=== PATIENT | female | born 1995 | race Caucasian/White ===

== ENCOUNTER 2016-12-08 02:16 | Emergency (ER) | payer MEDICAID ==
[~2016-12-08] VITALS: Ht 180.3 cm; Wt 90.9 kg
[2016-12-08 02:24] VITALS: BP 133/62; PULSE 85; TEMP 97.7
== END 2016-12-08 04:50 | disposition home or self-care (01) ==
LOC: COL.ER 02:16
DX: O9A.212 Injury, poisoning and certain other consequences of external causes complicating pregnancy, second trimester (principal); S93.402A Sprain of unspecified ligament of left ankle, initial encounter; Z3A.24 24 weeks gestation of pregnancy; X50.0XXA Overexertion from strenuous movement or load, initial encounter

== ENCOUNTER 2017-02-23 08:40 | Emergency (ER) | payer MEDICAID ==
[~2017-02-23] VITALS: Ht 180.3 cm; Wt 97.1 kg
[2017-02-23 08:49] VITALS: BP 129/77; PULSE 96; TEMP 98.5
[2017-02-23] MEDS ORDERED: PRENATAL PLUS (08:52)
[2017-02-23 09:30] LABS: STREP SCREEN NEGATIVE
[2017-02-23 09:31] LABS: INFLUENZA A NEGATIVE; INFLUENZA B NEGATIVE
== END 2017-02-23 10:25 | disposition home or self-care (01) ==
LOC: COL.ER 08:40
PROVIDERS: Emergency Medicine
DX: O99.513 Diseases of the respiratory system complicating pregnancy, third trimester (principal); J06.9 Acute upper respiratory infection, unspecified; Z3A.33 33 weeks gestation of pregnancy

== ENCOUNTER 2017-04-11 06:48 | Inpatient (IN) | payer MEDICAID ==
[~2017-04-11] VITALS: Ht 180.3 cm; Wt 100.0 kg
[2017-04-11] VITALS (66 sets, daily range): BP systolic 103–178; BP diastolic 55–97; PULSE 62–113; TEMP 97.3–98.5
[~2017-04-11 06:48] MED LIST: PRENATAL PLUS
[2017-04-11 07:44] LABS: BASO # 0.1 (0.0-0.2); BASO % 0.4 % (0.0-2.0); EOS # 0.2 (0.0-0.7); EOS % 1.1 % (0-4.0); GRAN # 10.1 (1.4-6.5); GRAN % 72.6 % (42.2-75.2); HEMOGLOBIN 12.4 g/dl (12.0-15.0); LYMPH # 2.5 (1.2-3.4); LYMPH % 17.6 % (20.0-51.0); MEAN CELL VOLUME 88 fl (80.0-95.0); MEAN CORPUSCULAR HEMOGLOBIN 30 pg (26.0-32.0); MEAN CORPUSCULAR HGB CONC 34 g/dl (33.0-37.0); MONO % 6.9 % (1.7-9.3); PLATELET COUNT 281 K/mm3 (130-400); REDCELL DISTRIBUTION WIDTH-CV 13.2 % (11.5-14.5)
[2017-04-11 07:58] LABS: TRICYCLIC ANTIDEPRESS URINE NEGATIVE
[2017-04-12] VITALS: BP 132/63; PULSE 96; TEMP 98.3
[2017-04-12 01:00] VITALS: BP 129/65; PULSE 98
[2017-04-12 05:11] VITALS: BP 120/72; PULSE 95; TEMP 98.3
[2017-04-12 07:00] VITALS: BP 122/56; PULSE 97; TEMP 98.1
[2017-04-12] MEDS ORDERED: IBU800 M1 PO (08:55)
[2017-04-12 15:00] VITALS: BP 108/76; PULSE 70; TEMP 98.2
[2017-04-12 20:55] VITALS: BP 127/81; PULSE 90; TEMP 98.4
[2017-04-13 07:05] VITALS: BP 107/65; PULSE 80
== END 2017-04-13 09:55 | disposition home or self-care (01) | DRG 775 ==
LOC: NSY 06:48 → OB 06:57 → LDR 06:57 → OB 22:09
PROVIDERS: Student in an Organized Health Care Education/Training Program
PROC: 10E0XZZ Delivery of Products of Conception, External Approach (ICD-10-PCS; principal; 2017-04-11)
PROC: 0HQ9XZZ Repair Perineum Skin, External Approach (ICD-10-PCS; 2017-04-11)
DX: O48.0 Post-term pregnancy (principal); O99.324 Drug use complicating childbirth; F12.90 Cannabis use, unspecified, uncomplicated; O70.0 First degree perineal laceration during delivery; Z3A.40 40 weeks gestation of pregnancy; Z37.0 Single live birth
CPT/HCPCS: J2405; J2590; J2795; J7120

== ENCOUNTER 2017-05-22 19:49 | Emergency (ER) | payer MEDICAID ==
[~2017-05-22 19:49] MED LIST changes: +IBU800 M1 PO
[2017-05-22 19:50] VITALS: TEMP 97.9
[2017-05-22 20:09] LABS: COLLECTION METHOD CLEAN CATCH
[2017-05-22 20:18] LABS: MUCOUS Present /lpf; PH 5 (5-8); URINE APPEARANCE Hazy; URINE BACTERIA Rare /hpf; URINE BILIRUBIN Negative (NEGATIVE); URINE BLOOD Negative (NEGATIVE); URINE COLOR Yellow; URINE GLUCOSE Negative (NEGATIVE); URINE KETONE Negative (NEGATIVE); URINE LEUKOCYTE ESTERASE Negative (NEGATIVE); URINE NITRATE Negative (NEGATIVE); URINE PROTEIN(semi-quant) Negative (NEGATIVE); URINE RBC 0-2 /hpf; URINE UROBILINOGEN Negative (NEGATIVE)
[2017-05-22] MEDS ORDERED: NORCO 325 MG-51 TAB PO (20:51)
[2017-05-22 21:23] VITALS: BP 123/77; PULSE 68
== END 2017-05-22 21:20 | disposition home or self-care (01) ==
LOC: COL.ER 19:49
PROVIDERS: Nurse Practitioner
DX: M54.31 Sciatica, right side (principal); F12.90 Cannabis use, unspecified, uncomplicated
CPT/HCPCS: J1885; J2360

== ENCOUNTER 2017-05-27 01:49 | Emergency (ER) | payer MEDICAID ==
[~2017-05-27] VITALS: Ht 180.3 cm; Wt 86.4 kg
[~2017-05-27 01:49] MED LIST changes: +NORCO 325 MG-51 TAB PO
[2017-05-27 01:50] VITALS: TEMP 97.9
[2017-05-27 02:15] LABS: BASO % 0.5 % (0.0-2.0); EOS # 0.2 (0.0-0.7); GRAN # 5.1 (1.4-6.5); GRAN % 59.7 % (42.2-75.2); LYMPH # 2.3 (1.2-3.4); LYMPH % 27.5 % (20.0-51.0); MEAN CELL VOLUME 87 fl (80.0-95.0); MEAN CORPUSCULAR HGB CONC 34 g/dl (33.0-37.0); MEAN PLATELET VOLUME 10.5 fl (7.4-10.4); MONO # 0.9 (0.1-0.6); MONO % 10.1 % (1.7-9.3); PLATELET COUNT 248 K/mm3 (130-400); REDCELL DISTRIBUTION WIDTH-CV 12.5 % (11.5-14.5)
[2017-05-27 02:20] LABS: HEMATOCRIT 33.1 % (35.0-45.0); HEMOGLOBIN 11.1 g/dl (12.0-15.0); MEAN CORPUSCULAR HEMOGLOBIN 29 pg (26.0-32.0)
[2017-05-27 02:25] LABS: ALBUMIN 3.8 gm/dL (3.5-5.0); BILIRUBIN,TOTAL 0.3 mg/dL (0.0-1.0); CALCIUM 8.8 mg/dL (8.4-10.2); CREATININE, serum 1.22 mg/dL (0.52-1.25); POTASSIUM 3.3 mmol/L (3.4-5.0); TOTAL PROTEIN 7.1 gm/dL (6.4-8.2)
[2017-05-27] MEDS ORDERED: PHENERGAN 25 TA25 MG PO (02:29)
[2017-05-27 04:18] VITALS: BP 140/84; PULSE 55
== END 2017-05-27 04:17 | disposition home or self-care (01) ==
LOC: COL.ER 01:49
PROVIDERS: Emergency Medicine
DX: O72.1 Other immediate postpartum hemorrhage (principal); O99.89 Other specified diseases and conditions complicating pregnancy, childbirth and the puerperium; R11.2 Nausea with vomiting, unspecified; R19.7 Diarrhea, unspecified; R10.32 Left lower quadrant pain; O99.325 Drug use complicating the puerperium; F12.90 Cannabis use, unspecified, uncomplicated
CPT/HCPCS: J1885; J2405; J2765; J3010; J7030

== ENCOUNTER 2017-08-24 19:51 | Emergency (ER) | payer MEDICAID ==
[~2017-08-24] VITALS: Ht 180.3 cm; Wt 89.1 kg
[~2017-08-24 19:51] MED LIST changes: +PHENERGAN 25 TA25 MG PO
[2017-08-24 19:53] VITALS: BP 132/76; TEMP 98.1
[2017-08-24 20:12] VITALS: PULSE 81
== END 2017-08-24 20:17 | disposition home or self-care (01) ==
LOC: COL.ER 19:51
DX: K64.4 Residual hemorrhoidal skin tags (principal)

== ENCOUNTER 2017-10-31 09:02 | Emergency (ER) | payer MEDICAID ==
[~2017-10-31] VITALS: Ht 180.3 cm; Wt 86.4 kg
[2017-10-31 09:06] VITALS: TEMP 99.3
[2017-10-31 09:46] VITALS: BP 123/79; PULSE 90
== END 2017-10-31 09:46 | disposition home or self-care (01) ==
LOC: COL.ER 09:02
DX: J02.9 Acute pharyngitis, unspecified (principal)

== ENCOUNTER 2017-11-14 11:20 | Emergency (ER) | payer MEDICAID ==
[~2017-11-14] VITALS: Ht 180.3 cm; Wt 88.0 kg
[2017-11-14 11:27] VITALS: BP 120/72; TEMP 98.4
[2017-11-14 12:00] LABS: BASO % 0.4 % (0.0-2.0); EOS # 0.1 (0.0-0.7); EOS % 1.1 % (0-4.0); GRAN # 6.8 (1.4-6.5); HEMOGLOBIN 11.8 g/dl (12.5-16.0); LYMPH # 1.8 (1.2-3.4); LYMPH % 19.1 % (20.0-51.0); MEAN CELL VOLUME 86 fl (80.0-100.0); MEAN CORPUSCULAR HEMOGLOBIN 29 pg (27.0-31.0); MEAN CORPUSCULAR HGB CONC 34 g/dl (33.0-37.0); MONO # 0.6 (0.1-0.6); MONO % 6.1 % (1.7-9.3); PLATELET COUNT 274 K/mm3 (130-400); RED BLOOD COUNT 4.01 M/mm3 (4.10-5.30); REDCELL DISTRIBUTION WIDTH-CV 11.9 % (11.5-14.5)
[2017-11-14 12:01] LABS: HEMATOCRIT 34.3 % (37.0-47.0)
[2017-11-14 12:07] LABS: ALBUMIN 4.1 gm/dL (3.5-5.0); BILIRUBIN,TOTAL 0.4 mg/dL (0.0-1.0); CALCIUM 9.1 mg/dL (8.4-10.2); CREATININE, serum 0.66 mg/dL (0.52-1.25); POTASSIUM 3.6 mmol/L (3.4-5.0); TOTAL PROTEIN 7.1 gm/dL (6.4-8.2)
[2017-11-14 12:35] LABS: COLLECTION METHOD CLEAN CATCH
[2017-11-14 12:44] LABS: MUCOUS Present /lpf; PH 8 (5-8); SQUAMOUS EPITHELIAL 0-2 /hpf; URINE APPEARANCE Clear; URINE BACTERIA None Seen /hpf; URINE BILIRUBIN Negative (NEGATIVE); URINE BLOOD Negative (NEGATIVE); URINE COLOR Yellow; URINE GLUCOSE Negative (NEGATIVE); URINE KETONE Negative (NEGATIVE); URINE LEUKOCYTE ESTERASE Negative (NEGATIVE); URINE NITRATE Negative (NEGATIVE); URINE PROTEIN(semi-quant) 1+ (NEGATIVE); URINE RBC 0-2 /hpf; URINE UROBILINOGEN Negative (NEGATIVE); URINE WBC 0-2 /hpf
[2017-11-14] MEDS ORDERED: REGLAN 10MG10 MG/TAB PO (12:48)
[2017-11-14 13:05] VITALS: PULSE 70
== END 2017-11-14 13:06 | disposition home or self-care (01) ==
LOC: COL.ER 11:20
PROVIDERS: Emergency Medicine
DX: O21.9 Vomiting of pregnancy, unspecified (principal); Z3A.01 Less than 8 weeks gestation of pregnancy
CPT/HCPCS: J2405; J2765